=== PATIENT | female | born 2000 | race Asian ===

== ENCOUNTER 2019-01-08 02:13 | Emergency (ER) | payer OTHER ==
--- NOTE | 2019-01-08 02:49 | ED ---
Substance Abuse/Use - HPI Summary HPI Summary: This pt is a 18 Y/O F presenting to [facility] with a CC of eating a rice crispy treat that contained marijuana. This pt complains of a dry mouth and extreme thirst. She states that this is the first time that she has every taken an edible. She states that she ate the edible at 2200 01/07/19. She states that she is currently anxious. She denies any SOB, N/V, fevers, chills, abdominal pain, and sore throat. She states no alleviating factors. She has no pertinent PMHx. - History Of Current Complaint Chief Complaint: EDSubstanceAbuse Stated Complaint: SUBSTANCE ABUSE PER EMS Time Seen by Provider: 01/08/19 02:21 Hx Obtained From: Patient Onset/Duration of Drug/ETOH Abuse: Hours - 220 Ingestion History: Type/Name Of Drug - edible, Approximate Time Of Ingestion - 2199 Aggravating Factor(s): Other - eating a rice krispy laced with marijuana Alleviating Factor(s): Nothing Associated Signs And Symptoms: Negative - SOB, N/V, fevers, chills, abdominal pain, and sore throat. Related Hx: Drug/Alcohol Last Used @ - 22001/07/19 - Allergies/Home Medications Allergies/Adverse Reactions: Allergies Allergy/AdvReac Type Severity Reaction Status Date / Time No Known Allergies Allergy Verified 01/08/19 02:22 Home Medications: Home Medications NK [No Home Medications Reported] 01/08/19 [History Confirmed 01/08/19] PMH/Surg Hx/FS Hx/Imm Hx Previously Healthy: Yes Endocrine/Hematology History: Denies: Hx Diabetes Cardiovascular History: Denies: Hx Hypertension Respiratory History: Denies: Hx Asthma Sensory History: Reports: Hx Contacts or Glasses Opthamlomology History: Reports: Hx Contacts or Glasses - Surgical History Surgical History: None - Immunization History Immunizations Up to Date: Yes Infectious Disease History: No Infectious Disease History: Denies: Traveled Outside the [place] in Last 30 Days - Family History Known Family History: Negative: Cardiac Disease, Hypertension - Social History Occupation: Student - [employer] Lives: Dormitory/Roommates Alcohol Use: None Hx Substance Use: No Hx Tobacco Use: No Smoking Status (MU): Never Smoked Tobacco Household Exposure: No Review of Systems - ROS Summary Review of Systems Summary: ROS incomplete due to level 5 caveat, intoxication All Other Systems Reviewed And Are Negative: No Physical Exam - Summary Physical Exam Summary: Appearance: Well-appearing, Well-nourished, lying in bed comfortably Skin: Warm, dry, no obvious rash Eyes: sclera anicteric, no conjunctival pallor ENT: mucous membranes moist, pharynx appears normal Neck: Supple, nontender Respiratory: Clear to auscultation, no signs of respiratory distress Cardiovascular: Normal S1, S2. No murmurs. Normal distal pulses in tibial and radial bilaterally. Abdomen: Soft, nontender, normal active bowel sounds present Musculoskeletal: Normal, Strength/ROM Intact Neurological: A&Ox3, awake and alert, mentation is normal, speech is fluent and appropriate Psychiatric: affect is normal, does not appear anxious or depressed Triage Information Reviewed: Yes Vital Signs On Initial Exam: Initial Vitals Temp Pulse Resp BP Pulse Ox 97.8 F 103 18 145/83 100 01/08/19 02:15 01/08/19 02:15 01/08/19 02:15 01/08/19 02:15 01/08/19 02:15 Vital Signs Reviewed: Yes Diagnostics - Vital Signs Vital Signs Temp Pulse Resp BP Pulse Ox 01/08/19 02:15 97.8 F 103 18 145/83 100 - Laboratory Lab Statement: Any lab studies that have been ordered have been reviewed, and results considered in the medical decision making process. Course/Dx - Course Course Of Treatment: This pt is a 18 Y/O F presenting to [facility] with a CC of eating a rice crispy treat that contained marijuana. This pt complains of a dry mouth and extreme thirst. She states that this is the first time that she has every taken an edible. She states that she is anxious. Her PE found no acute abnormalities. She will be observed in the ED until she is feeling well enough to go home. She will be discharged home with a Dx of cannibis intoxication. - Diagnoses Provider Diagnoses: Cannabis intoxication Discharge ED - Sign-Out/Discharge Documenting (check all that apply): Patient Departure - discharge Patient Received Moderate/Deep Sedation with Procedure: No - Discharge Plan Condition: Stable Disposition: HOME Patient Education Materials: Cannabis Abuse (ED) Referrals: [facility] [Outside] - Billing Disposition and Condition Condition: STABLE Disposition: Home - Attestation Statements Document Initiated by Scribe: Yes Documenting Scribe: Thompson Brown Provider For Whom Corin is Documenting (Include Credential): Dawit Hanson MD Scribe Attestation: I, Thompson Brown, scribed for Dawit Hanson MD on 01/08/19 at 1847. Scribe Documentation Reviewed: Yes Provider Attestation: The documentation as recorded by the emileThompson accurately reflects the service I personally performed and the decisions made by me, Dawit Hanson MD Status of Scribe Document: Viewed
[2019-01-08 06:31] VITALS: BP 125/98
== END 2019-01-08 06:35 | disposition home or self-care (01) ==
LOC: ED 02:13
DX: F12.929 Cannabis use, unspecified with intoxication, unspecified (principal)
CPT/HCPCS: 99283